=== PATIENT | female | born 1995 | race Hispanic/Latino ===

== ENCOUNTER 2018-12-26 12:39 | Emergency (ER) | payer OTHER ==
[2018-12-26 13:20] LABS: BASOPHILS % (AUTO) 0.6 % (0.0-5.0); EOSINOPHILS % (AUTO) 0.3 % (0.0-8.0); HEMATOCRIT 39.6 % (36-48); LYMPHOCYTES % (AUTO) 25.9 % (21.0-51.0); MEAN CORPUSCULAR HEMOGLOBIN 32.7 pg (27.0-33.0); MEAN CORPUSCULAR HGB CONC 34.6 g/dL (32.0-36.0); MEAN CORPUSCULAR VOLUME 94.4 fL (79-99); MONOCYTES % (AUTO) 6.9 % (3.0-13.0); NEUTROPHILS % (AUTO) 66.3 % (40.0-77.0); NUCLEATED RED BLOOD CELLS 0.1 % (0.0-0.19); PLATELET COUNT (AUTO) 188 K/uL (130-400); RED BLOOD CELL COUNT(AUTO) 4.19 MIL/uL (4.00-5.50); RED CELL DISTRIBUTION WIDTH 13.3 % (11.0-15.5); WHITE BLOOD COUNT (AUTO) 8.7 K/uL (4.8-10.8)
[2018-12-26 13:46] LABS: APPEARANCE,URINE Clear (CLEAR); BILIRUBIN,URINE Negative (NEGATIVE); COLOR,URINE Yellow (YELLOW); GLUCOSE, URINE (UA) Negative (NEGATIVE); KETONES,URINE Negative (NEGATIVE); LEUKOCYTE ESTERASE ,URINE Large (NEGATIVE); NITRATE,URINE Negative (NEGATIVE); OCCULT BLOOD,URINE Large (NEGATIVE); PH,URINE 6.5 (5.0-8.0); PROTEIN,URINE Negative (NEGATIVE); UROBILINOGEN,URINE 0.2 mg/dL (0.2-1.0)
[2018-12-26 14:14] LABS: BACTERIA,URINE Rare /HPF (None Seen); RBC,URINE 0-1 /HPF (0-1); SQUAMOUS EPITHELIAL CELL,UR Rare /HPF (0-2)
== END 2018-12-26 16:27 | disposition home or self-care (01) ==
LOC: EDH 12:39
DX: O20.0 Threatened abortion (principal); O23.591 Infection of other part of genital tract in pregnancy, first trimester; R82.71 Bacteriuria; Z3A.01 Less than 8 weeks gestation of pregnancy
CPT/HCPCS: 36415; 76801; 81001; 84702; 85025; 86850; 86900; 86901

== ENCOUNTER 2019-06-05 21:06 | Emergency (ER) | payer MEDICAID, OTHER ==
[2019-06-05 21:46] LABS: HCG,QUAL RESULT NEGATIVE (NEGATIVE)
[2019-06-05 21:48] LABS: APPEARANCE,URINE Clear (CLEAR); BILIRUBIN,URINE Negative (NEGATIVE); COLOR,URINE Yellow (YELLOW); GLUCOSE, URINE (UA) Negative (NEGATIVE); KETONES,URINE Negative (NEGATIVE); LEUKOCYTE ESTERASE ,URINE Moderate (NEGATIVE); NITRATE,URINE Negative (NEGATIVE); OCCULT BLOOD,URINE Large (NEGATIVE); PH,URINE 6.5 (5.0-8.0); PROTEIN,URINE Negative (NEGATIVE)
[2019-06-05] MEDS ORDERED: LIDOCAINE HCL 2% VISCOUS 15 ML UDCUP ONE (21:55)
[2019-06-05] MEDS ORDERED: MAG HYDROX/AL HYDROX/SIMETH ES 30 ML SUSP UDCUP ONE (21:55)
[2019-06-05] MEDS ORDERED: ONDANSETRON ODT 4 MG TAB ONE (21:56)
[2019-06-05 21:59] LABS: BASOPHILS % (AUTO) 0.7 % (0.0-5.0); EOSINOPHILS % (AUTO) 1.1 % (0.0-8.0); HEMATOCRIT 37.7 % (36-48); MEAN CORPUSCULAR HEMOGLOBIN 32.8 pg (27.0-33.0); MEAN CORPUSCULAR HGB CONC 34.5 g/dL (32.0-36.0); MONOCYTES % (AUTO) 8.2 % (3.0-13.0); PLATELET COUNT (AUTO) 196 K/uL (130-400); RED BLOOD CELL COUNT(AUTO) 3.97 MIL/uL (4.00-5.50); RED CELL DISTRIBUTION WIDTH 13.4 % (11.0-15.5); WHITE BLOOD COUNT (AUTO) 7.4 K/uL (4.8-10.8)
[2019-06-05 22:02] LABS: BACTERIA,URINE Moderate /HPF (None Seen); MUCUS,URINE Few LPF (None Seen)
[2019-06-05 22:07] LABS: CREATININE 0.6 mg/dL (0.5-1.5); POTASSIUM 3.4 mmol/L (3.5-5.1)
[2019-06-05 22:11] LABS: ALBUMIN 3.5 g/dL (3.5-5.0); BILIRUBIN,TOTAL 0.2 mg/dL (0.2-1.0); TOTAL PROTEIN, SERUM 7.4 g/dL (6.0-8.3)
[2019-06-05] MEDS ORDERED: FAMOTIDINE 20MG TAB 20 MG TAB ONE (22:36)
== END 2019-06-05 22:45 | disposition home or self-care (01) ==
LOC: EDH 21:06
DX: K29.70 Gastritis, unspecified, without bleeding (principal); N39.0 Urinary tract infection, site not specified
CPT/HCPCS: 36415; 80053; 81001; 81025; 83690; 85025

== ENCOUNTER 2024-06-15 21:12 | Emergency (ER) | payer BC ==
[~2024-06-15] VITALS: Ht 160 cm; Wt 63.0 kg
--- NOTE | 2024-06-15 21:30 | ERN ---
ED Note History of Present Illness Stated Complaint: ALLERGIC REACTION Chief Complaint: Allergic Reaction Time Seen by MD: 21:15 Time Seen by Midlevel: 21:15 Dictation: The patient is a 28-year-old female with no past medical history who presents to the emergency department with complaints of generalized hives onset Tuesday on and off. Patient reports rash is itchy and improves with Benadryl. Last dose of Benadryl was taking this morning. Patient denies any known exposure to allergens. Does reports she is allergic to seafood, reports rash. Patient denies any shortness of breath. Allergies: Coded Allergies: No Known Drug Allergies (Unverified Allergy, Unknown, 12/26/18) Past Medical History Past Medical History: No Pertinent History Surgical History: None LMP: May 31, 2024 RN Note Reviewed/Agreed w/PFSH: Yes Review of System Dictation Constitutional: Negative for fever,chills, and weight loss Eyes: Negative for injury, pain,redness, and discharge ENT: Negative for injury,pain or swelling Cardiovascular: Negative for chest pain, palpitations, and edema Respiratory: Negative for shortness of breath, cough, and wheezing, Abdomen/GI: Negative for abdominal pain, nausea, vomiting, diarrhea, and constipation Back: Negative for injury and pain : Negative for injury, bleeding and discharge MS/Extremity: Negative for injury and deformity Skin: Negative for discoloration. Positive for rash Neuro: Negative for headache, weakness, numbness, tingling, and seizure Psych: Negative for suicide ideation, homicidal ideation, and hallucinations Initial Vital Sign VS Vital Signs Date Time Temp Pulse Resp B/P (MAP) Pulse Ox O2 Delivery O2 Flow Rate FiO2 06/15/24 21:14 97.9 84 16 119/73 100 Room Air 06/15/24 21:47 0 21 Physical Exam Dictation Vital Signs reviewed General Appearance: Alert, oriented x 3, no acute distress, well developed, nourished. Head and Face: non-traumatic. Eyes: PERRL, pink conjunctivas, eyelid no trauma, anterior chamber with arcus senilis. Ears: Pinnas intact and no signs of trauma or erythema ear canals clear and no discharge TM no erythema Nose: No discharge, no bleeding. Oropharynx: Mouth normal, tongue pink. Normal tongue size, no drooling pharynx clear,no erythema, tonsils no exudates, no abscesses noted, mucous membrane moist Neck: Supple, non-tender, no thyromegaly, no masses, no JVD, no bruits Breast:Deferred Chest:No tenderness, no crepitus, no paradoxical movement, no retractions Lungs:Clear, well-ventilated, symmetric, no rales, no wheezing, no rhonchi, no stridor, good breath sounds bilaterally Heart: Regular rate, regular rhythm, no murmur, no gallops Vascular: no peripheral edema, Abdomen: Soft, positive bowel sounds, nondistended, no guarding, nontender, no rebound, no masses no hepatomegaly, no splenomegaly, no Rodriguez's sign, no hernias. Rectal: Deferred Genital: Deferred Neurological: Normal speech, motor function intact, sensory function intact Musculoskeletal: Neck nontender, full range of motion, back nontender, full range of motion, Extremities: nontender, full range of motion Skin: Color pink, dry, no turgor, no lacerations, no abrasions, no contusions. Hives noted to torso, back, neck, bilateral extremities. Lymphatic: Deferred Results (Laboratory/Radiology) Labs Reviewed?: Yes ED Course ED Course Orders Procedure Category Date Status Time Diphenhydramine Hcl PHA 06/15/24 Complete (Benadryl Inj) 21:30 Methylprednisolone PHA 06/15/24 Complete Succ 125mg (Solu-Medr 21:30 Famotidine 20mg Vial PHA 06/15/24 Complete (Pepcid 20mg Vial) 21:30 0.9%Nacl 1000ml (Ns PHA 06/15/24 Complete 1000ml) 21:30 ,Urine Test LAB 06/15/24 Logged 21:25 Current Medications Medications (Trade) Dose Ordered Sig/Jeanine Route PRN Reason Start Time Stop Time Status Last Admin Dose Admin Diphenhydramine HCl (BENAdryl INJ) 25 mg ONCE ONCE IV 06/15/24 21:30 06/15/24 21:31 DC 06/15/24 21:36 Famotidine (Pepcid 20mg Vial) 20 mg ONCE ONCE IV 06/15/24 21:30 06/15/24 21:31 DC 06/15/24 21:35 Methylprednisolone Sodium Succinate (Solu-medROL 125MG) 125 mg ONCE ONCE IVP 11/8/24 21:30 06/15/24 21:31 DC 06/15/24 21:36 Sodium Chloride 1,000 ml @ 0 mls/hr ONCE ONCE IV 06/15/24 21:30 06/15/24 21:31 DC 06/15/24 21:35 Vital Signs Date Time Temp Pulse Resp B/P (MAP) Pulse Ox O2 Delivery O2 Flow Rate FiO2 06/15/24 22:48 97.9 66 18 111/66 100 Room Air* 0 21 06/15/24 21:47 67 18 106/67 100 Room Air* 0 21 06/15/24 21:14 97.9 84 16 119/73 100 Room Air Medical Decision Making MDM The patient is a 28-year-old female with no past medical history who presents to the emergency department with complaints of generalized hives onset Tuesday on and off. Patient reports rash is itchy and improves with Benadryl. Last dose of Benadryl was taking this morning. Patient denies any known exposure to juan m rgens. Does reports she is allergic to seafood, reports rash. Patient denies any shortness of breath Patient reassessed after medication. Patient no longer with a rash. Will be discharged to follow up with primary doctor. Differential diagnosis: Acute urticaria, allergic reaction, anaphylactic, Need for hospitalization: Patient does not meet criteria for hospitalization. There are no social concerns with this patient. DX & DISP Disposition: Discharge Departure Impression: Primary Impression: Acute urticaria Condition: Stable Scripts Diphenhydramine HCl (Benadryl) 50 Mg Cap 50 MG PO Q6H for itching/rash, #20 CAP 0 Refills Prov: CHESTER HAUSER [employer] 06/15/24 Famotidine (Pepcid) 20 Mg Tablet 1 TAB PO BID for 5 Days, #60 TAB 0 Refills Prov: CHESTER HAUSER [employer] 06/15/24 Additional Instructions: Please continue taking medications as prescribed. Take Benadryl for rash. If symptoms worsen, severe facial swelling, tongue swelling please present back to the emergency department FOLLOW-UP WITH PRIMARY CARE PROVIDER IN 1 TO 2 DAYS. TAKE MEDICATIONS DIRECTED HERE IN THE EMERGENCY ROOM. OKAY TO CONTINUE HOME MEDICATIONS UNLESS OTHERWISE DISCUSSED DURING YOUR VISIT IN THE EMERGENCY ROOM TODAY. RETURN TO YOUR NEAREST EMERGENCY ROOM IF SYMPTOMS WORSEN OR IF THERE IS NO IMPROVEMENT. CALL 911 IF YOU NEED IMMEDIATE ASSISTANCE. TAKE TYLENOL OR MOTRIN [id number] NEEDED AND IF NO CONTRAINDICATIONS ARE PRESENT. INCREASE ORAL HYDRATION. A WOUND CULTURE OR URINE CULTURE WAS ORDERED HERE IN THE EMERGENCY ROOM DEPARTMENT PLEASE FOLLOW-UP WITH PRIMARY CARE PROVIDER AND ADVISE THEM TO GET REPEAT PORTS FROM OUR FACILITY. IF YOU HAD ANY KEITH WRAP/SPLINTS THAT WERE APPLIED HERE, PLEASE DO NOT REMOVE THEM UNTIL YOU SEE YOUR PRIMARY CARE OR SPECIALTY. Referrals: ARUNA HALL MD (PCP) Time of Disposition: 22:58 I have reviewed the case, and I agree with, Diagnosis and Plan CHESTER HAUSER [facility] Jun 15, 2024 21:30
[2024-06-15] MEDS: 0.9%NACL 1000ML 1,000 ML IV ONE (21:35)
[2024-06-15] MEDS: FAMOTIDINE 20MG VIAL IV ONE (21:35)
[2024-06-15] MEDS: DiphenhydrAMINE HCL 50 MG/ML VIAL IV ONE (21:36)
[2024-06-15] MEDS: Solu-medROL 125MG VIAL IVP ONE (21:36)
[2024-06-15 22:48] VITALS: BP 111/66; PULSE 66; RESP 18; TEMP 97.9; O2SAT 100
[2024-06-15] MEDS ORDERED: FAMO-136 PO (22:59)
[2024-06-15] MEDS ORDERED: DIPH50 PO (22:59)
== END 2024-06-15 23:11 | disposition home or self-care (01) ==
LOC: EDH 21:12
DX: L50.0 Allergic urticaria (principal)
CPT/HCPCS: 99284; 96374; 96375; 96361; J1200; J3490; J7030; J2919

== ENCOUNTER 2025-01-03 17:46 | Emergency (ER) | payer BC ==
[~2025-01-03] VITALS: Ht 165.1 cm; Wt 61.2 kg
[~2025-01-03 17:46] MED LIST: DIPH50 PO; FAMO-136 PO
[2025-01-03 18:06] LABS: ADD UA MICROSCOPIC YES; APPEARANCE,URINE CLEAR (CLEAR); BILIRUBIN,URINE NEGATIVE (NEGATIVE); COLOR,URINE LIGHT-YELLOW (YELLOW); GLUCOSE, URINE (UA) NEGATIVE (NEGATIVE); KETONES,URINE NEGATIVE (NEGATIVE); LEUKOCYTE ESTERASE ,URINE 75 Leu/uL (NEGATIVE); NITRATE,URINE NEGATIVE (NEGATIVE); PH,URINE 8.5 (5.0-8.0); PROTEIN,URINE 30 mg/dL (NEGATIVE); UROBILINOGEN,URINE 3 mg/dL (0.2-1.0)
--- NOTE | 2025-01-03 18:06 | ERN ---
ED Note History of Present Illness Stated Complaint: LOWER ABD PAIN RADIATES TO BACK Chief Complaint: Abdominal Pain Time Seen by MD: 17:50 Time Seen by Midlevel: 17:50 Dictation: The patient is a 29-year-old female with no past medical history who presents to the emergency department with lower abdominal pain that radiates to the back associated with nausea onset yesterday. Patient denies any vomiting or diarrhea, denies any fevers. Patient reports burning with urination but denies any hematuria or vaginal bleeding. Allergies: Coded Allergies: No Known Drug Allergies (Unverified Allergy, Unknown, 12/26/18) Home Meds Active Scripts Ibuprofen (Ibuprofen) 600 Mg Tablet, 600 MG PO Q6H PRN for PAIN, #15 TAB Prov:CHESTER HAUSER [facility] 01/03/25 Nitrofurantoin Monohyd/M-Cryst (Macrobid 100 mg Capsule) 100 Mg Capsule, 1 CAP PO BID for 5 Days, #10 CAP 0 Refills Prov:CHESTER HAUSER [facility] 01/03/25 Diphenhydramine HCl (Benadryl) 50 Mg Cap, 50 MG PO Q6H for itching/rash, #20 CAP 0 Refills Prov:CHESTER HAUSER [facility] 06/15/24 Famotidine (Pepcid) 20 Mg Tablet, 1 TAB PO BID for 5 Days, #60 TAB 0 Refills Prov:CHESTER HAUSER [facility] 06/15/24 Past Medical History Past Medical History: No Pertinent History Surgical History: None LMP: December 22, 2024 RN Note Reviewed/Agreed w/PFSH: Yes Review of System Dictation Constitutional: Negative for fever,chills, and weight loss Eyes: Negative for injury, pain,redness, and discharge ENT: Negative for injury,pain or swelling Cardiovascular: Negative for chest pain, palpitations, and edema Respiratory: Negative for shortness of breath, cough, and wheezing, Abdomen/GI: Negative for vomiting, diarrhea, and constipation positive for abdominal pain, nausea Back: Negative for injury and pain positive for low back pain : Negative for injury, bleeding and discharge positive for dysuria MS/Extremity: Negative for injury and deformity Skin: Negative for rash, and discoloration Neuro: Negative for headache, weakness, numbness, tingling, and seizure Psych: Negative for suicide ideation, homicidal ideation, and hallucinations Initial Vital Sign VS Vital Signs Date Time Temp Pulse Resp B/P (MAP) Pulse Ox O2 Delivery O2 Flow Rate FiO2 01/03/25 17:48 99.3 89 18 117/81 100 Room Air 0 01/03/25 18:39 21 Physical Exam Dictation Vital Signs reviewed General Appearance: Alert, oriented x 3, no acute distress, well developed, nourished. Head and Face: non-traumatic. Eyes: PERRL, pink conjunctivas, eyelid no trauma, anterior chamber with arcus senilis. Ears: Pinnas intact and no signs of trauma or erythema ear canals clear and no discharge TM no erythema Nose: No discharge, no bleeding. Oropharynx: Mouth normal, tongue pink. pharynx clear,no erythema, tonsils no exudates, no abscesses noted, mucous membrane moist Neck: Supple, non-tender, no thyromegaly, no masses, no JVD, no bruits Breast:Deferred Chest:No tenderness, no crepitus, no paradoxical movement, no retractions Lungs:Clear, well-ventilated, symmetric, no rales, no wheezing, no rhonchi, no stridor, good breath sounds bilaterally Heart: Regular rate, regular rhythm, no murmur, no gallops Vascular: no peripheral edema, Abdomen: Soft, positive bowel sounds, nondistended, no guarding, Lower abdominal tenderness, no rebound, no masses no hepatomegaly, no splenomegaly, no Rodriguez's sign, no hernias. Rectal: Deferred Genital: Deferred Neurological: Normal speech, motor function intact, sensory function intact Musculoskeletal: Neck nontender, full range of motion, back nontender, full rang e of motion, Extremities: nontender, full range of motion Skin: Color pink, dry, no turgor, no rash, no lacerations, no abrasions, no contusions. Lymphatic: Deferred Results (Laboratory/Radiology) Laboratory/Radiology Laboratory Tests Test 01/03/25 17:55 01/03/25 18:31 Urine Color LIGHT-YELLOW (YELLOW) Urine Appearance CLEAR (CLEAR) Urine pH 8.5 (5.0-8.0) H Urine Specific [place] 1.029 (1.001-1.031) Urine Protein 30 mg/dL (NEGATIVE) H Urine Glucose (UA) NEGATIVE mg/dL (NEGATIVE) Urine Ketones NEGATIVE mg/dL (NEGATIVE) Urine Occult Blood +- (TRACE) (NEGATIVE) H Urine Nitrate NEGATIVE (NEGATIVE) Urine Bilirubin NEGATIVE mg/dL (NEGATIVE) Urine Urobilinogen 3 mg/dL (0.2-1.0) H Urine Leukocyte Esterase 75 Georgie/uL (NEGATIVE) H Urine RBC 51-100 /HPF (0-1) H Urine WBC 6-10 /HPF (0-1) H Urine Squamous Epithelial Cells FEW /HPF (0-2) Urine Bacteria RARE /HPF (None Seen) Urine Yeast FEW /HPF (None Seen) Urine HCG, Qualitative NEGATIVE (NEGATIVE) White Blood Count 8.9 K/uL (4.8-10.8) Red Blood Count 3.88 MIL/uL (4.00-5.50) L Hemoglobin 12.7 g/dL (12.0-16.0) Hematocrit 37.0 % (36-48) Mean Corpuscular Volume 95.4 fL (79-99) Mean Corpuscular Hemoglobin 32.7 pg (27.0-33.0) Mean Corpuscular Hemoglobin Concent 34.3 g/dL (32.0-36.0) Red Cell Distribution Width 13.0 % (11.0-15.5) Platelet Count 194 K/uL (130-400) Mean Platelet Volume 10.9 fL (7.5-10.5) H Immature Granulocyte % (Auto) 0.2 % (0-1) Neutrophils (%) (Auto) 72.5 % (40.0-77.0) Lymphocytes (%) (Auto) 17.5 % (21.0-51.0) L Monocytes (%) (Auto) 8.8 % (3.0-13.0) Eosinophils (%) (Auto) 0.7 % (0.0-8.0) Basophils (%) (Auto) 0.3 % (0.0-5.0) Neutrophils # (Auto) 6.4 K/uL (1.8-7.7) Lymphocytes # (Auto) 1.6 K/uL (1.0-4.8) Monocytes # (Auto) 0.8 K/uL (0.1-1.0) Eosinophils # (Auto) 0.06 K/uL (0.00-0.70) Basophils # (Auto) 0.03 K/uL (0.00-0.20) Absolute Immature Granulocyte (auto 0.02 K/uL (0-1) Nucleated Red Blood Cells 0.0 % (0.0-0.19) Sodium Level 139 mmol/L (136-145) Potassium Level 3.4 mmol/L (3.5-5.1) L Chloride Level 103 mmol/L (101-111) Carbon Dioxide Level 25 mmol/L (21-32) Blood Urea Nitrogen 14 mg/dL (7-18) Creatinine 0.5 mg/dL (0.5-1.0) Glomerular Filtration Rate Calc 131 mL/min (>90) Random Glucose 94 mg/dL (70-105) Total Calcium 8.1 mg/dL (8.5-10.1) L REASON: Abdominal Pain ORDERING PHYSICIAN: CHESTER HAUSER DIRECTOR BROADCAST PROCEDURE: PELVCOMP - US PELVIC NON-OB COMP US PELVIC NON-OB COMP HISTORY: Abdominal pain COMPARISON: None TECHNIQUE: Transabdominal pelvic ultrasound study was performed. FINDINGS: The uterus measures 8.1 x 4.8 x 5.4 cm. The right ovary measures 3.6 x 1.6 x 2.2 cm. The left ovary measures 3.5 x 3 x 2.9 cm. Endometrial thickness is 12 mm. Fluid is seen in the endometrial canal. No free fluid is seen in the cul-de-sac. IMPRESSION: 1. No adnexal mass is seen. REASON: ABD PAIN lower, flank pain ORDERING PHYSICIAN: CHESTER HAUSER [facility] PROCEDURE: ABD PEL WO - CT ABDOMEN/PELVIS W/O CONTRAST CT ABDOMEN/PELVIS W/O CONTRAST HISTORY: Abdominal pain COMPARISON: None TECHNIQUE: Multiple sequential axial images of the abdomen and pelvis were obtained from the dome of the diaphragm through symphysis pubis. Patient was not given contrast through intravenous route. Oral contrast was not given. FINDINGS: No pleural effusion is seen bilaterally. There is no evidence of parenchymal disease or pulmonary nodule of the visualized lower lungs. Degenerative changes of the thoracolumbar spine are present. The heart is not enlarged. Later is borderline enlarged measuring 18 cm. The liver, spleen, adrenal glands and pancreas are unremarkable. There is no evidence of hydronephrosis bilaterally. No evidence of renal stone is seen. Fecal material is seen in the colon. There are normal size retroperitoneal and mesenteric lymph nodes. No ascites is seen. Atherosclerotic changes are present. Uterus is enlarged suggesting a fibroid uterus. No CT evidence of acute appendicitis is seen. Pelvic sidewalls are symmetric bilaterally. Bladder is well distended without wall thickening. IMPRESSION: 1. Enlarged uterus suggestive of fibroid uterus. CT was performed with one or more following dose reduction techniques: automated exposure control, adjustment of the mA and kv according to patient's size, or use of a iterative reconstruction technique. Labs Reviewed?: Yes ED Course ED Course Orders Procedure Category Date Status Time Urinalysis Profile LAB 01/03/25 Complete 17:52 Cbc With Differential LAB 01/03/25 Complete 17:52 Basic Metabolic Panel LAB 01/03/25 Complete 17:52 ,Urine Test LAB 01/03/25 Complete 17:52 Us Pelvic Non-Ob Comp US 01/03/25 Resulted 18:01 0.9%Nacl 1000ml (Ns PHA 01/03/25 Complete 1000ml) 18:30 Morphine 4mg Syg PHA 01/03/25 Complete (Morphine 4mg Syg) 18:30 Ondansetron 4mg Inj PHA 01/03/25 Complete (Zofran 4mg Inj) 18:30 Culture Urine CRISTHIAN 01/03/25 In Process 18:07 Ct Abdomen/Pelvis W/O CT 01/03/25 Resulted Contrast 19:05 Ceftriaxone 1g Vial PHA 01/03/25 Complete (Rocephine 1g Inj) 20:00 Potassium Bicarb/Cit PHA 01/03/25 Complete Ac 25meq (K-Lyte Ta 20:00 Current Medications Medications (Trade) Dose Ordered Sig/Jeanine Route PRN Reason Start Time Stop Time Status Last Admin Dose Admin Ceftriaxone Sodium (ROCEphine 1G INJ) 1 gm ONCE ONCE IVPB 01/03/25 20:00 01/03/25 20:01 DC 01/03/25 20:07 Morphine Sulfate (morPHINE 4MG SYG) 4 mg ONCE ONCE IVP 01/03/25 18:30 01/03/25 18:31 DC 01/03/25 18:35 Ondansetron HCl (zoFRAN 4MG INJ) 4 mg ONCE ONCE IVP 01/03/25 18:30 01/03/25 18:31 DC 01/03/25 18:35 Potassium Bicarbonate (K-Lyte Tablet Eff 25 Meq Tablet.eff) 25 meq ONCE ONCE PO 01/03/25 20:00 01/03/25 20:01 DC 01/03/25 20:07 Sodium Chloride 1,000 ml @ 0 mls/hr ONCE ONCE IV 01/03/25 18:30 01/03/25 18:31 DC 01/03/25 18:35 Vital Signs Date Time Temp Pulse Resp B/P (MAP) Pulse Ox O2 Delivery O2 Flow Rate FiO2 01/03/25 20:18 98.8 78 16 116/69 100 Room Air* 0 21 01/03/25 18:39 84 18 111/75 100 Room Air* 0 21 01/03/25 17:48 99.3 89 18 117/81 100 Room Air 0 Medical Decision Making MDM The patient is a 29-year-old female with no past medical history who presents to the emergency department with lower abdominal pain that radiates to the back associated with nausea onset yesterday. Patient denies any vomiting or diarrhea, denies any fevers. Patient reports burning with urination but denies any hematuria or vaginal bleeding. CBC showed no leukocytosis, no anemia, chemistry showed mild hypokalemia, normal renal function, urinalysis positive for leukocyte esterase, negative hCG. CT abdomen and pelvis showed enlarged uterus a suggesting fibroid uterus, no CT abdomen evidence suggesting appendicitis. Patient will be treated with the antibiotics and instructed to follow up with the OBGYN. On physical exam patient has no acute distress, mild tenderness to suprapubic area, stable vital signs patient agrees to follow up with the OBGYN. Differential diagnosis: UTI, pyelonephritis, ovarian cyst, appendicitis Need for hospitalization: Patient does not meet criteria for hospitalization. There are no social concerns with this patient. DX & DISP Disposition: Discharge Departure Impression: Primary Impression: Fibroid uterus Additional Impressions: Abdominal pain, UTI (urinary tract infection) Condition: Stable Scripts Ibuprofen (Ibuprofen) 600 Mg Tablet 600 MG PO Q6H PRN for PAIN, #15 TAB Prov: CHESTER HAUSER [employer] 01/03/25 Nitrofurantoin Monohyd/M-Cryst (Macrobid 100 mg Capsule) 100 Mg Capsule 1 CAP PO BID for 5 Days, #10 CAP 0 Refills Prov: CHESTER HAUSER DIRECTOR [employer]CAST 01/03/25 Additional Instructions: Please per primary doctor in 1-2 days. Follow up with the OBGYN. Take your antibiotics as prescribed and Until finished even if feeling better. If symptoms worsen please return to ER. FOLLOW-UP WITH PRIMARY CARE PROVIDER IN 1 TO 2 DAYS. TAKE MEDICATIONS DIRECTED HERE IN THE EMERGENCY ROOM. OKAY TO CONTINUE HOME MEDICATIONS UNLESS OTHERWISE DISCUSSED DURING YOUR VISIT IN THE EMERGENCY ROOM TODAY. RETURN TO YOUR NEAREST EMERGENCY ROOM IF SYMPTOMS WORSEN OR IF THERE IS NO IMPROVEMENT. CALL 911 IF YOU NEED IMMEDIATE ASSISTANCE. TAKE TYLENOL OR MOTRIN [id number] NEEDED AND IF NO CONTRAINDICATIONS ARE PRESENT. INCREASE ORAL HYDRATION. A WOUND CULTURE OR URINE CULTURE WAS ORDERED HERE IN THE EMERGENCY ROOM DEPARTMENT PLEASE FOLLOW-UP WITH PRIMARY CARE PROVIDER AND ADVISE THEM TO GET REPEAT PORTS FROM OUR FACILITY. IF YOU HAD ANY KEITH WRAP/SPLINTS THAT WERE APPLIED HERE, PLEASE DO NOT REMOVE THEM UNTIL YOU SEE YOUR PRIMARY CARE OR SPECIALTY. Referrals: RAJAT LAST MD (PCP) VITO ALANIS MD Time of Disposition: 20:02 I have reviewed the case, and I agree with, Diagnosis and Plan CHESTER HAUSER January 03, 2025 18:06 VERNON RED DO January 04, 2025 03:29
[2025-01-03 18:09] LABS: BACTERIA,URINE RARE /HPF (None Seen); MUCUS,URINE RARE LPF (None Seen); RBC,URINE 51-100 /HPF (0-1); SQUAMOUS EPITHELIAL CELL,UR FEW /HPF (0-2); YEAST,URINE BUDDING FEW /HPF (None Seen)
[2025-01-03] MEDS: ondanSETRON 4MG INJ IVP ONE (18:35)
[2025-01-03] MEDS: 0.9%NACL 1000ML 1,000 ML IV ONE (18:35)
[2025-01-03] MEDS: morPHINE 4 MG SYG IVP ONE (18:35)
[2025-01-03 18:39] LABS: BASOPHILS # (AUTO) 0.03 K/uL (0.00-0.20); BASOPHILS % (AUTO) 0.3 % (0.0-5.0); EOSINOPHILS # (AUTO) 0.06 K/uL (0.00-0.70); EOSINOPHILS % (AUTO) 0.7 % (0.0-8.0); IMMATURE GRANULOCYTE ABSOLUTE 0.02 K/uL (0-1); LYMPHOCYTES # (AUTO) 1.6 K/uL (1.0-4.8); LYMPHOCYTES % (AUTO) 17.5 % (21.0-51.0); MEAN CORPUSCULAR HEMOGLOBIN 32.7 pg (27.0-33.0); MEAN CORPUSCULAR HGB CONC 34.3 g/dL (32.0-36.0); MEAN CORPUSCULAR VOLUME 95.4 fL (79-99); MONOCYTES # (AUTO) 0.8 K/uL (0.1-1.0); MONOCYTES % (AUTO) 8.8 % (3.0-13.0); NEUTROPHILS # (AUTO) 6.4 K/uL (1.8-7.7); NEUTROPHILS % (AUTO) 72.5 % (40.0-77.0); PLATELET COUNT (AUTO) 194 K/uL (130-400); RED BLOOD CELL COUNT(AUTO) 3.88 MIL/uL (4.00-5.50); WHITE BLOOD COUNT (AUTO) 8.9 K/uL (4.8-10.8)
[2025-01-03 18:48] LABS: CREATININE 0.5 mg/dL (0.5-1.0); POTASSIUM 3.4 mmol/L (3.5-5.1)
--- NOTE | 2025-01-03 19:16 | HMCIMG ---
US PELVIC NON-OB COMP HISTORY: Abdominal pain COMPARISON: None TECHNIQUE: Transabdominal pelvic ultrasound study was performed. FINDINGS: The uterus measures 8.1 x 4.8 x 5.4 cm. The right ovary measures 3.6 x 1.6 x 2.2 cm. The left ovary measures 3.5 x 3 x 2.9 cm. Endometrial thickness is 12 mm. Fluid is seen in the endometrial canal. No free fluid is seen in the cul-de-sac. IMPRESSION: 1. No adnexal mass is seen.
--- NOTE | 2025-01-03 19:33 | HMCIMG ---
CT ABDOMEN/PELVIS W/O CONTRAST HISTORY: Abdominal pain COMPARISON: None TECHNIQUE: Multiple sequential axial images of the abdomen and pelvis were obtained from the dome of the diaphragm through symphysis pubis. Patient was not given contrast through intravenous route. Oral contrast was not given. FINDINGS: No pleural effusion is seen bilaterally. There is no evidence of parenchymal disease or pulmonary nodule of the visualized lower lungs. Degenerative changes of the thoracolumbar spine are present. The heart is not enlarged. Later is borderline enlarged measuring 18 cm. The liver, spleen, adrenal glands and pancreas are unremarkable. There is no evidence of hydronephrosis bilaterally. No evidence of renal stone is seen. Fecal material is seen in the colon. There are normal size retroperitoneal and mesenteric lymph nodes. No ascites is seen. Atherosclerotic changes are present. Uterus is enlarged suggesting a fibroid uterus. No CT evidence of acute appendicitis is seen. Pelvic sidewalls are symmetric bilaterally. Bladder is well distended without wall thickening. IMPRESSION: 1. Enlarged uterus suggestive of fibroid uterus. CT was performed with one or more following dose reduction techniques: automated exposure control, adjustment of the mA and kv according to patient's size, or use of a iterative reconstruction technique.
[2025-01-03] MEDS ORDERED: IBUP-2070 PO (20:06)
[2025-01-03] MEDS ORDERED: NITR100C4 PO (20:06)
[2025-01-03] MEDS: cefTRIAXone 1G VIAL IVPB ONE (20:07)
[2025-01-03] MEDS: PoTASSium BIcarbonate/CIT AC 25 MEQ TABLET.EFF PO ONE (20:07)
[2025-01-03 20:18] VITALS: BP 116/69; PULSE 78; RESP 16; TEMP 98.7; O2SAT 100
== END 2025-01-03 20:36 | disposition home or self-care (01) ==
LOC: EDH 17:50
DX: D25.9 Leiomyoma of uterus, unspecified (principal); N39.0 Urinary tract infection, site not specified; R10.30 Lower abdominal pain, unspecified
CPT/HCPCS: 99285; 74176; 96374; 76856; 96375; 96361; 80048; 85025; 87086; 81001; 81025; 36415; J7030; J0696; J2405; J2270